=== PATIENT | female | born 1955 | race Caucasian/White ===

== ENCOUNTER 2017-10-27 08:48 | Outpatient (CLI) | payer OTHER ==
[2016-03-24 20:12] VITALS: BP 150/75
[2017-10-27 17:02] LABS: TOTAL PROTEIN 7.4 g/dL (6.0-8.5)
== END 2017-10-27 08:50 ==
LOC: LAB 08:48
PROVIDERS: ATTEND Family Medicine
DX: Z13.6 Encounter for screening for cardiovascular disorders (principal)
CPT/HCPCS: 36415; 80053; 80061

== ENCOUNTER 2018-08-21 01:07 | Emergency (ER) | payer MEDICARE, OTHER ==
--- NOTE | 2018-08-21 01:16 | ED Physician Documentation ---
General Adult - HISTORIAN Historian: patient - HPI Stated Complaint: shortness of breath Chief Complaint: Wheezing Onset: days ago (4) Timing: better Severity: mild Further Comments: yes (she states she started with shortness of breath and she did see her PCP who started her on antibitoics and an inhaler. She reports she recently started wearing this oxygen at home. She denies a fever. States this evening she was noticing increasing shortness of breath and she woke and called 911. She states she actually is feeling better now then she was. She has no other complaints currently) - ROS CONST: weakness EYES/ENT: none CVS/RESP: shortness of breath, cough GI/: none MS/SKIN/LYMPH: none NEURO/PSYCH: denies: headache, fainting, dizziness - PAST HX Past History: COPD Immunizations: UTD Allergies/Adverse Reactions: Allergies Allergy/AdvReac Type Severity Reaction Status Date / Time No Known Drug Allergies Allergy Verified 03/24/16 19:47 Home Medications: Ambulatory Orders Medication Instructions Recorded Albuterol Sulfate [Ventolin HFN] 1 inh INH DIRECTED 08/21/18 Ciprofloxacin HCl [Cipro] 500 mg PO BID 08/21/18 - SOCIAL HX Smoking History: cigarettes Alcohol Use: none Drug Use: none - FAMILY HX Family History: No - VITAL SIGNS Vital Signs: Vital Signs Temp Pulse Resp BP Pulse Ox 150/75 03/24/16 20:09 - REVIEWED ASSESSMENTS Nursing Assessment Reviewed: Yes Vitals Reviewed: Yes Progress - Progress Progress: 0140: work of breathing is reduced. She has more air movement on RLL - she reports feeling better DG 0210: discussed plan and results . She states she is feeling better. Is agreeable DG ED Results Lab/Radiology - Radiology Radiology Impressions: AP chest Clinical history: Shortness of breath. Findings: Examination of the chest in single AP view demonstrates the lungs to be hyperinflated with flattening of the hemidiaphragms consistent with changes of emphysema. Cardiac silhouette is within normal limits and the aorta is atherosclerotic. There is mild prominence of the interstitial markings in the lung bases that appears chronic. Impression: 1. Emphysema. 2. Chronic appearing interstitial changes in the lung bases. 3. Aortic atherosclerosis. Electronically signed on Aug 21, 2018 2:00:21 AM FRONT OFFICE MANAGER by: Marco A Oneil General Adult Physical Exam - PHYSICAL EXAM GENERAL APPEARANCE: mild distress EENT: eye inspection normal, no signs of dehydration NECK: normal inspection RESPIRATORY: wheezes, other (diminished right side ) CVS: reg rate & rhythm, heart sounds normal ABDOMEN: soft, no distension BACK: normal inspection, no CVA tenderness SKIN: warm/dry, normal color EXTREMITIES: non-tender, no edema NEURO: oriented X3 Discharge Clincal Impression: Emphysema lung Qualifiers: Emphysema type: unspecified Qualified Code(s): J43.9 - Emphysema, unspecified Referrals: Digna Gayle MD [Primary Care Provider] - 2 Days Comments: 1. Continue home meds 2. Prednisone 20 mg take 1 by mouth daily 3. Ativan 0.5 mg take 1 by mouth every 12 hrs prn anxiety 4. Ipratroprium/Albuterol - use 1 vial in neb every 6 hours 5. Use home oxygen 6. Follow up with PCP Thursday 7. Return to ER for any concerns Condition: Stable Disposition: 01 HOME, SELF-CARE Decision to Admit: NO Date of Decison to Admit: 08/21/18 Decision Time: 02:30
[2018-08-21] MEDS ORDERED: IPRATROPIUM/ALBUTEROL SULFATE 3 ML AMPUL.NEB NEB ONE ×2 (01:18→02:06)
[2018-08-21] MEDS ORDERED: methylPREDNISolone SOD SUCC 125 MG/2 ML VIAL IVP ONE (01:18)
[2018-08-21] MEDS ORDERED: BUDESONIDE 0.5MG/2ML AMPUL.NEB NEB ONE (01:57)
[2018-08-21] MEDS ORDERED: LORazepam 1 MG TABLET PO ONE (02:06)
--- NOTE | 2018-08-21 02:16 | Diagnostic Imaging Report ---
LYNN RAO [facility] [address] [facility].[address] [id number] Report Submission Date: Aug 21, 2018 2:00:21 AM DORMITORY MAID Patient Study Name: SHAR QIU Date: Aug 21, 2018 1:17:16 AM DORMITORY MAID Modality Type: DX Gender: F Description: CHEST 1VIEW : 55 Institution: [facility] Physician: LYNN RAO AP chest Clinical history: Shortness of breath. Findings: Examination of the chest in single AP view demonstrates the lungs to be hyperinflated with flattening of the hemidiaphragms consistent with changes of emphysema. Cardiac silhouette is within normal limits and the aorta is atherosclerotic. There is mild prominence of the interstitial markings in the lung bases that appears chronic. Impression: 1. Emphysema. 2. Chronic appearing interstitial changes in the lung bases. 3. Aortic atherosclerosis. Electronically signed on Aug 21, 2018 2:00:21 AM DORMITORY MAID by: Marco A CURTIS
[2018-08-21 06:27] VITALS: BP 144/65
[2018-08-21 08:21] LABS: eGFR (Non-African) > 60
[2018-08-21 08:21] LABS: MEAN CORPUSCULAR HEMOGLOBIN 28.6 pg (28.0-34.0)
[2018-08-21 08:22] LABS: BASOPHILS % 0.6 (0.0-1.5); EOSINOPHILS % 1.9 % (0.0-6.8); NEUTROPHILS # 8.1 # k/uL (1.4-7.7)
== END 2018-08-21 02:31 | disposition home or self-care (01) ==
LOC: ED 01:07
DX: J43.9 Emphysema, unspecified (principal)
CPT/HCPCS: 36415; 71045; 80053; 85025; 94640; 96374; 99284; 99285; J2930; J7626

== ENCOUNTER 2018-09-20 09:32 | Outpatient (CLI) | payer OTHER ==
[2018-09-10 14:31] VITALS: BP 148/67
[2018-09-20] MEDS ORDERED: ALBUTEROL SULFATE 2.5 MG/3 ML AMPUL.NEB NEB ONE (10:03)
== END 2018-09-20 09:35 ==
LOC: RT 09:32
PROVIDERS: ATTEND Nurse Practitioner Family
DX: J44.9 Chronic obstructive pulmonary disease, unspecified (principal)
CPT/HCPCS: 94060

== ENCOUNTER 2019-03-04 12:08 | Outpatient (CLI) | payer OTHER ==
[2018-09-10 14:31] VITALS: BP 148/67
[2019-03-04 12:52] LABS: BASOPHILS % 0.4 % (0.0-1.5); NEUTROPHILS # 6.8 # k/uL (1.4-7.7)
[2019-03-04 13:18] LABS: eGFR (Non-African) > 60
--- NOTE | 2019-03-05 00:06 | Diagnostic Imaging Report ---
MARIMAR STANTON [facility] [address] [facility].[address] [address] Report Submission Date: Mar 04, 2019 1:09:59 PM CDT Patient Study Name: SHAR QIU Date: Mar 04, 2019 12:20:20 PM CDT Modality Type: DX Gender: F Description: CHEST 2VIEW : 55 Institution: [facility] Physician: MARIMAR STANTON PA and lateral chest History: Dyspnea. Former smoker. PA and lateral chest dated March 04, 2019 is compared with September 10, 2018. There is severe COPD. Heart size is normal. Pulmonary vascularity is normal. There is no confluent infiltrate or pleural effusion. Impression: Severe COPD. No active disease. Electronically signed on Mar 04, 2019 1:09:59 PM CDT by: Margo CURTIS
== END 2019-03-04 12:10 ==
LOC: RAD 12:08
PROVIDERS: ATTEND Family Medicine
DX: R06.00 Dyspnea, unspecified (principal); Z87.891 Personal history of nicotine dependence
CPT/HCPCS: 36415; 71046; 80053; 83880; 85025